=== PATIENT | female | born 2000 | race Caucasian/White ===

== ENCOUNTER 2024-10-19 11:06 | Outpatient (CLI) | payer SELFPAY ==
[2024-10-19 11:55] LABS: Basophils % 0.3 % (0.1-2.0); Eosinophils # 0.1 Kmm3 (0.0-0.4); Eosinophils % 0.9 % (0.1-12.0); Hematocrit 33.7 % (37.0-47.0); Hemoglobin 11.6 g/dL (12.2-16.2); Immature Granulocytes # 0.05 10^3uL; Immature Granulocytes % 0.5 %; Lymphocytes # 1.7 K/mm3 (0.7-4.5); Lymphocytes % 15.8 % (10-50); Mean Corpuscular HGB Conc 34.4 g/dL (31.8-35.4); Mean Corpuscular Hemoglobin 29.1 pg (27.0-31.2); Mean Corpuscular Volume 84.7 fl (81-99); Mean Platelet Volume 9.3 fl (7.4-10.4); Monocytes # 0.5 K/mm3 (0.1-1.0); Monocytes % 4.6 % (1.7-9.3); Neutrophils # 8.6 K/mm3 (1.8-7.8); Neutrophils % 77.9 % (37.0-80.0); Nucleated Red Blood Cells # 0 10^3/uL; Nucleated Red Blood Cells % 0 %; Platelet Count 290 K/mm3 (142-424); Red Blood Count 3.98 M/mm3 (4.20-5.40); Red Cell Distribution Width 13.4 % (11.5-17.5); Red Cell Distribution Width-SD 41.6 fL
[2024-10-19 15:21] LABS: HIV Combo NEGATIVE (Negative); RPR W/RFX Titers Nonreactive (Nonreactive)
[2024-10-19 15:30] LABS: Hepatitis C Ab Qual. W/ RFX NEGATIVE (Negative)
[2024-10-20 05:43] LABS: Hepatitis B Surface Antigen Negative (Negative)
[2024-10-20 10:31] LABS: Rubella Antibodies, IgG <0.90 index (Immune >0.99)
== END 2024-10-19 23:59 | disposition home or self-care (01) ==
LOC: LAB 11:08
PROVIDERS: PCP Family Medicine; Visit Provider Obstetrics & Gynecology
DX: Z34.01 Encounter for supervision of normal first pregnancy, first trimester (principal)
CPT/HCPCS: 36415; 85025; 86592; 86762; 86803; 86850; 87340; 87389

== ENCOUNTER 2025-01-12 13:52 | Outpatient (CLI) | payer SELFPAY ==
--- NOTE | 2025-01-12 13:45 | US_ITS ---
PROCEDURE: US OB /MATERNAL DETAIL CLINICAL INDICATION: 20 Week Anatomy Scan-US OB Complete COMPARISON: No exams were available for comparison FINDINGS: Transabdominal sonographic images of the pelvis were obtained. From her established due date she is 20 weeks 5 days. Single viable intrauterine gestation. Breech position. Placenta: Anteriorplacenta grade 1. There is an average amount of fluid. The cervix appears satisfactory. Closed and measuring 3.97 cm in length. Complete survey performed and was unremarkable on the submitted images as in PACS. No discrete anomalies identified on survey imaging by technologist. Active fetus. Three-vessel cord with satisfactory umbilical cord insertion. 4- chamber heart noted. Situs, aortic arch, LVOT, RVOT, three-vessel view appear normal. Survey of brain & ventricles Unremarkable. Cerebellum, thalamus, choroid plexus, cisterna magna appear normal. Face and neck survey unremarkable. Profile, nasion, lips and nose appeared normal. Diaphragm and chest views unremarkable. Abdomen: Both kidneys noted and unremarkable. Stomach and bladder noted and satisfactory. Spine: Survey of the spine satisfactory with no anomalies identified nor imaged. Cervical, thoracic, lower spine appear normal. Both arms and legs noted. Amniotic Fluid: Adequate. MVP 3.47 cm Measurements: Average ultrasound age 20weeks 6days. Estimated due date by ultrasound age 0105/26/2025. Estimated weight 368g BPD = 21weeks 0 days HC = 20weeks 5days AC = 21weeks 2days FL = 20weeks 1day Growth Percentile= 41 Heart Rate = 127bpm Cerebellum = 20weeks 6days Humerus = 20weeks 3days HC/AC is 1.14 FL/BPD is 0.65 FL/AC is 0.2 IMPRESSION: 1. Viable fetus in the breech presentation with an anterior placenta grade 1. 2. The fluid is within normal limits with an MVP 3.47 cm. 3. Anatomical scan appears normal. 4. biometry is consistent with the dates. Dictated by: Yoav Damon MD 01/12/2025 18:02 Yoav Damon MD in [facility] 01/12/2025 18:02
== END 2025-01-12 23:59 | disposition home or self-care (01) ==
LOC: RAD 13:53
PROVIDERS: PCP Family Medicine; Visit Provider Obstetrics & Gynecology
DX: O32.1XX0 Maternal care for breech presentation, not applicable or unspecified (principal); O09.892 Supervision of other high risk pregnancies, second trimester; R10.11 Right upper quadrant pain; Z28.39 Other underimmunization status; Z36.3 Encounter for antenatal screening for malformations; Z3A.20 20 weeks gestation of pregnancy
CPT/HCPCS: 76811

== ENCOUNTER 2025-04-20 08:22 | Outpatient (CLI) | payer SELFPAY ==
--- NOTE | 2025-04-20 08:30 | US_ITS ---
PROCEDURE: US OB FOLLOW UP CLINICAL INDICATION: Growth COMPARISON: US US OB /MATERNAL DETAIL from 01/12/2025 FINDINGS: Transabdominal sonographic images of the pelvis were obtained. The following parameters are obtained: From her established due date she is 34weeks 5days Viable fetus in the cephalic presentation with an anterior placenta grade 2. The cervix measures 4.45 cm in length heart rate: 140bpm bpm. Average ultrasound age 34 weeks 0 days Estimated weight 2356 grams, 5 lb 3 oz BPD: 33weeks 4days, 17 percentile HC: 34weeks 3days, 10 percentile AC: 35weeks 0 days, 63 percentile FL: 32weeks 6days, 6 percentile HC/AC: 0.99 FL/BPD: 0.76 FL/AC: 0.2 Growth percentile: 29 Amniotic fluid index: 7.17cm, MVP 3.96 cm No obvious anomalies evident. profile seen, stomach, bladder, kidneys, three-vessel cord, four chamber heart appear normal. IMPRESSION: 1. Viable fetus in the cephalic presentation with an anterior placenta grade 2. 2. The fluid is within normal limits with an amniotic fluid index 7.17 cm, MVP 3.96 cm. 3. There has been good interval growth with the fetus currently 29th percentile. 4. Limited anatomical scan appears normal. Dictated by: Yoav Damon MD 04/20/2025 09:33 Yoav Damon MD in [facility] 04/20/2025 09:33
== END 2025-04-20 23:59 | disposition home or self-care (01) ==
LOC: RAD 08:23
PROVIDERS: PCP Family Medicine; Visit Provider Obstetrics & Gynecology
DX: O36.5930 Maternal care for other known or suspected poor fetal growth, third trimester, not applicable or unspecified (principal); Z3A.34 34 weeks gestation of pregnancy
CPT/HCPCS: 76816

== ENCOUNTER 2025-04-29 10:30 | Outpatient (CLI) | payer SELFPAY | END 2025-04-29 23:59 | disposition home or self-care (01) | LOC: LAB.DROPOF 04-30 09:22 | PROVIDERS: PCP Family Medicine; Visit Provider Obstetrics & Gynecology | DX: O36.5930 Maternal care for other known or suspected poor fetal growth, third trimester, not applicable or unspecified (principal); Z3A.30 30 weeks gestation of pregnancy | CPT/HCPCS: 86403 ==